=== PATIENT | female | born 1960 | race Asian ===

== ENCOUNTER 2018-07-21 09:45 | Outpatient (CLI) | payer MEDICAID ==
--- NOTE | 2018-07-21 11:02 | Cat Scan Report ---
CT CHEST WITHOUT CONTRAST: HISTORY: Pericardial effusion. COMPARISON: none. TECHNIQUE: Helical CT in 1.25mm intervals without IV contrast. Sagittal and coronal reformatted images. FINDINGS: Thyroid gland: Normal. Tracheobronchial tree: Normal. Esophagus: Normal. Heart: Normal. Pericardium: Within normal limits. There is trace pericardial fluid which appears physiologic. No significant pericardial effusion. Mediastinum: Normal. Lung Landrum: Normal. Pleural Spaces: Normal. Musculoskeletal: Intact. Right breast prosthesis and right axillary lymph node dissection changes are noted. No fracture or suspicious bony lesion is identified. IMPRESSION: Unremarkable CT chest without contrast. No pericardial effusion is detected.
== END 2018-07-21 09:46 | disposition home or self-care (01) ==
LOC: CT 09:45
PROVIDERS: ATTEND Internal Medicine Cardiovascular Disease
DX: I31.3 Pericardial effusion (noninflammatory) (principal); I10 Essential (primary) hypertension
CPT/HCPCS: 71250